=== PATIENT | male | born 1995 | race American Indian/Alaskan Native ===

== ENCOUNTER 2017-01-24 23:09 | Emergency (ER) | payer SELFPAY ==
[2017-01-25 00:03] LABS: Basophils % (Auto) 0.7 % (0.0-1.8); Hematocrit 44.7 % (35.5-45.6); Hemoglobin 14.7 gm/dl (11.8-15.2); Mean Corpuscular HGB Conc 33 % (32-34); Mean Corpuscular Hemoglobin 27 pg (28-32); Mean Corpuscular Volume 83 fl (84-94); Red Blood Count 5.38 M/mm3 (3.65-5.03); Red Cell Distribution Width 13.4 % (13.2-15.2); White Blood Count 5.3 K/mm3 (4.5-11.0)
[2017-01-25 00:13] LABS: BUN/Creatinine Ratio 13.75; Blood Urea Nitrogen 11 mg/dL (9-20); Calcium 9.1 mg/dL (8.4-10.2); Carbon Dioxide 21 mmol/L (22-30); Chloride 99.8 mmol/L (98-107); Glucose 128 mg/dL (75-100); Potassium 3.8 mmol/L (3.6-5.0); Sodium 137 mmol/L (137-145)
[2017-01-25 00:15] LABS: Platelet Count 198 K/mm3 (140-440)
[2017-01-25 00:17] LABS: Anion Gap 20 mmol/L
[2017-01-25 03:04] LABS: Bilirubin,Urine NEG (Negative); Blood,Urine NEG (Negative); Ketones,Urine NEG (Negative); Leukocyte Esterase,Urine NEG (Negative); Mucus,Urine FEW /HPF; Nitrite,Urine NEG (Negative); Protein,Urine <15 mg/dL mg/dL (Negative); WBC,Urine < 1.0 /HPF (0.0-6.0)
[2017-01-25 04:11] VITALS: BP 116/75
[2017-01-25] MEDS ORDERED: ATIVAN PO ONE (05:36)
--- NOTE | 2017-01-25 05:44 | Emergency Department Report ---
HPI - General Chief Complaint: Anxiety Time Seen by Provider: 01/25/17 05:36 - HPI HPI: Patient states for the past 2 weeks he feels dizzy when standing up on walking. He denies any nausea, vomiting denies chest pain. He A he describe his dizziness have the room spinning around him, to the point where he feels like his dental follow-up. Patient aLso feels very anxious for the past year, due to current life situation. Denies suicidal or homicidal ideations. ED Past Medical Hx - Past Medical History Previous Medical History?: Yes Hx Asthma: Yes - Surgical History Past Surgical History?: No - Social History Smoking Status: Current Every Day Smoker Substance Use Type: Alcohol - Medications Home Medications: Home Medications Medication Instructions Recorded Confirmed Last Taken Type Cyclobenzaprine HCl [Flexeril 5mg] 5 mg PO Q6HR #20 tablet 11/04/14 Unknown Rx Ibuprofen [Motrin 800 MG tab] 800 mg PO Q8H PRN #30 tablet 11/04/14 Unknown Rx Meclizine [Antivert] 25 mg PO TID PRN #30 tablet 01/25/17 Unknown Rx ED Review of Systems ROS: Stated complaint: DIZZINESS/ Other details as noted in HPI Comment: All other systems reviewed and negative Genitourinary: as per HPI Skin: as per HPI Neurological: vertigo Psychiatric: as per HPI Physical Exam - Physical Exam Vital Signs: Vital Signs 01/24/17 01/25/17 23:30 04:10 Temperature 98.9 F 97.6 F Pulse Rate 69 64 Respiratory 18 18 Rate Blood Pressure 119/74 116/75 O2 Sat by Pulse 99 Oximetry Physical Exam: - General Limitations: No Limitations General appearance: alert, in no apparent distress - Head Head exam: Present: atraumatic, normocephalic - Eye Eye exam: Present: normal appearance - ENT ENT exam: Present: mucous membranes moist - Neck Neck exam: Present: normal inspection - Respiratory Respiratory exam: Present: normal lung sounds bilaterally. Absent: respiratory distress - Cardiovascular Cardiovascular Exam: Present: normal rhythm, tachycardia. Absent: systolic murmur, diastolic murmur, rubs, gallop - GI/Abdominal GI/Abdominal exam: Present: soft, normal bowel sounds - Extremities Exam Extremities exam: Present: normal inspection - Back Exam Back exam: Present: normal inspection - Neurological Exam Neurological exam: Present: alert, oriented X3, - Skin Skin exam: Present: warm, dry, intact, normal color. Absent: rash ED Course Vital Signs 01/24/17 01/25/17 23:30 04:10 Temperature 98.9 F 97.6 F Pulse Rate 69 64 Respiratory 18 18 Rate Blood Pressure 119/74 116/75 O2 Sat by Pulse 99 Oximetry ED Medical Decision Making - Lab Data Result diagrams: 01/24/17 23:41 01/24/17 23:41 Critical care attestation.: If time is entered above; I have spent that time in minutes in the direct care of this critically ill patient, excluding procedure time. ED Disposition Clinical Impression: Dizziness, Anxiety, generalized Disposition: DC-01 TO HOME OR SELFCARE Is pt being admited?: No Does the pt Need Aspirin: No Condition: Stable Instructions: Dizziness (ED), Vertigo (ED), Generalized Anxiety Disorder (ED) Prescriptions: Meclizine [Antivert] 25 mg PO TID PRN #30 tablet PRN Reason: Vertigo Referrals: PRIMARY CARE, [Primary Care Provider] - 3-5 Days KODI MALCOLM MD [Staff Physician] - 3-5 Days
== END 2017-01-25 05:58 | disposition home or self-care (01) ==
LOC: ED 23:09
DX: F41.9 Anxiety disorder, unspecified (principal); J45.909 Unspecified asthma, uncomplicated; F17.210 Nicotine dependence, cigarettes, uncomplicated
CPT/HCPCS: 36415; 80048; 81001; 85025; 99283